=== PATIENT | male | born 1965 | race Caucasian/White ===

== ENCOUNTER 2024-01-23 16:14 | Emergency (ER) | payer OTHER, SELFPAY ==
[2024-01-23 16:26] VITALS: BP 120/92; PULSE 92; TEMP 38.1; O2SAT 93; BMI 32.7
--- NOTE | 2024-01-23 16:33 | ECG_ITS ---
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
--- NOTE | 2024-01-23 16:39 | ED.GENADUL1 ---
HPI HPI - General Adult General Chief complaint: Fall Stated complaint: FALL Time Seen by Provider: 01/23/24 16:27 Source: patient Mode of arrival: walk-in Limitations: no limitations History of Present Illness HPI narrative: Patient presents to ED from [facility] for medical evaluation. He arrived there from [place] today and had a fall yesterday. He is currently intoxicated. He has an abrasion on his forehead and his lip and complains of left collarbone pain and shoulder pain due to a fall. He said he does not remember falling or how he fell. He admits to drinking for the past few months and is going to the [facility] for further care. He has a low-grade fever on arrival Related Data Allergies Allergy/AdvReac Type Severity Reaction Status Date / Time No Known Drug Allergies Allergy Verified 01/23/24 16:26 Opioid HPI Opioid Management Most Recent Opioid Data: No Data to Display Review of Systems ROS Status of ROS 10 or more systems reviewed and unremarkable except as noted in history and below Exam Narrative Exam Narrative: Time Seen: [] Vital Signs: [Per nurse's notes.] General: [Alert]Intoxicated Skin: [Warm, dry, no rash.] Head: [Normocephalic, Abrasion of the forehead and abrasion to the lip Neck: [Supple, trachea midline.] Eye: [Pupils are equal, round and reactive to light, extraocular movements are intact, normal conjunctiva.] Ears, nose, mouth and throat: oral mucosa moist. Cardiovascular: [Regular rate and rhythm, no murmur.] Respiratory: [Lungs are clear to auscultation, respirations are non-labored, breath sounds are equal.] Chest wall: [No tenderness, no deformity.] Gastrointestinal: [Soft, nontender, non distended, normal bowel sounds.] MSK: 5 out of 5 muscle strength x 4 extremities no calf pain or edema, Tenderness to palpation over the left clavicle. Pain with any range of motion of the left upper extremity. No elbow pain no wrist pain. Lymphatics: [No lymphadenopathy.] Psychiatric: [Cooperative, appropriate mood & affect.] Neurological: [Alert and oriented to person, place, time, and situation, no focal neurological deficit observed.] Constitutional Vital Signs, click to edit/add: Last Vital Signs Temp 100.6 F H 01/23/24 16:26 Pulse 87 05/08/24 17:41 Resp 14 01/23/24 17:41 BP 124/87 01/23/24 17:41 Pulse Ox 95 01/23/24 17:41 O2 Del Method Room Air 01/23/24 16:26 Course Vital Signs Vital signs: Vital Signs Temperature 100.6 F H 01/23/24 16:26 Pulse Rate 92 H 01/23/24 16:26 Respiratory Rate 20 01/23/24 16:26 Blood Pressure 120/92 H 01/23/24 16:26 Pulse Oximetry 93 L 01/23/24 16:26 Oxygen Delivery Method Room Air 01/23/24 16:26 Temperature 100.6 F H 01/23/24 16:26 Pulse Rate 87 01/23/24 17:41 Respiratory Rate 14 01/23/24 17:41 Blood Pressure 124/87 01/23/24 17:41 Pulse Oximetry 95 01/23/24 17:41 Oxygen Delivery Method Room Air 01/23/24 16:26 Medical Decision Making MDM Narrative Medical decision making narrative: Patient's x-rays show a fractured clavicle. Patient was placed in a sling. He was given pain medication here. His labs are nonacute and his COVID swab was negative. His alcohol level is elevated over 300. He is medically cleared to return to detox center. He will need follow-up with Ortho Differential Diagnosis Differential Diagnosis: Clavicle fracture, electrolyte abnormality, concussion, brain injury,Alcoho Medical Records Medical records reviewed: Yes I reviewed the patient's medical records Lab Data Lab results reviewed: Yes I reviewed the patient's lab results Labs: Lab Results 01/23/24 Range/Units 16:40 WBC 9.9 (4.0-11.0) 10^3/uL RBC 4.79 (4.70-6.10) 10^6/uL Hgb 15.1 (14.0-18.0) g/dL Hct 43.1 (42.0-54.0) % MCV 90.0 (80.0-94.0) fL MCH 31.5 (25.9-34.0) pg MCHC 35.0 (29.9-35.2) g/dL RDW 14.1 (11.0-15.0) % Plt Count 254 (150-450) 10^3/uL MPV 10.1 (9.5-13.5) fL Neut % (Auto) 61.8 (43.0-75.0) % Lymph % (Auto) 30.5 (20.5-60.0) % [place] % (Auto) 6.7 (1.7-12.0) % Eos % (Auto) 0.4 L (0.9-7.0) % Baso % (Auto) 0.2 (0.2-2.0) % Neut # (Auto) 6.1 (1.4-6.5) 10^3/uL Lymph # (Auto) 3.0 (1.2-3.8) 10^3/uL [place] # (Auto) 0.7 (0.3-0.8) 10^3/uL Eos # (Auto) 0.0 (0.0-0.7) 10^3/uL Baso # (Auto) 0.0 (0.0-0.1) 10^3/uL Abs Immat Gran (auto) 0.04 H (0.00-0.03) 10^3/uL Imm/Tot Granulo (auto) 0.4 (0.0-0.5) % Sodium 141 (136-145) mmol/L Potassium 4.0 (3.5-5.1) mmol/L Chloride 102 (98-107) mmol/L Carbon Dioxide 22.6 (21.0-32.0) mmol/L Anion Gap 20.4 BUN 9.0 (7.0-18.0) mg/dL Creatinine 0.88 (0.70-1.30) mg/dL Est GFR ( Amer) >60 (>=60) Est GFR (Non-Af Amer) >60 (>=60) BUN/Creatinine Ratio 10.2 Glucose 97 (74-106) mg/dL Calcium 8.9 (8.5-10.1) mg/dL Total Bilirubin 0.4 (0.2-1.0) mg/dL AST 29 (15-37) U/L ALT 37 (16-63) U/L Alkaline Phosphatase 99 (46-116) U/L Total Protein 8.1 (6.4-8.2) g/dL Albumin 4.2 (3.4-5.0) g/dL Globulin 3.9 g/dL Albumin/Globulin Ratio 1.1 Lipase 43.0 (16.0-77.0) U/L Ethanol Quant 312 mg/dL SARS-CoV-2 Ag (CV2AG) Negative (NEGATIVE) Imaging Data Chest x-ray: Radiologist's impression: ITS Impressions Chest X-Ray 01/23/24 17:08 IMPRESSION: Acute mild to moderately displaced minimally comminuted mid left clavicle fracture. Mild left glenohumeral and AC joint degenerative change. Remainder of the chest and left clavicle radiographs is unremarkable. EXAM: CT scan of the head without contrast. Dose reduction technique used: Automated exposure control and/or adjustment of the mA and/or kV according to patient size and/or use of iterative reconstruction technique. REASON FOR EXAM: fall COMPARISON: None FINDINGS: No intracranial hemorrhage, mass effect, midline shift, fractures or evidence of acute ischemic infarct. No hydrocephalus. Minimal generalized cerebral and cerebellar volume loss. Minimal small vessel gliosis. Paranasal sinuses and mastoid air cells are clear. Remainder unremarkable. IMPRESSION: No acute intracranial abnormalities. Electronically authenticated by: SAGE DigifyHOLA Date: 01/23/2024 17:28 Clavicle X-Ray 01/23/24 17:08 IMPRESSION: Acute mild to moderately displaced minimally comminuted mid left clavicle fracture. Mild left glenohumeral and AC joint degenerative change. Remainder of the chest and left clavicle radiographs is unremarkable. EXAM: CT scan of the head without contrast. Dose reduction technique used: Automated exposure control and/or adjustment of the mA and/or kV according to patient size and/or use of iterative reconstruction technique. REASON FOR EXAM: fall COMPARISON: None FINDINGS: No intracranial hemorrhage, mass effect, midline shift, fractures or evidence of acute ischemic infarct. No hydrocephalus. Minimal generalized cerebral and cerebellar volume loss. Minimal small vessel gliosis. Paranasal sinuses and mastoid air cells are clear. Remainder unremarkable. IMPRESSION: No acute intracranial abnormalities. Electronically authenticated by: [employer] Date: 01/23/2024 17:[address] 01/23/24 17:08 IMPRESSION: Acute mild to moderately displaced minimally comminuted mid left clavicle fracture. Mild left glenohumeral and AC joint degenerative change. Remainder of the chest and left clavicle radiographs is unremarkable. EXAM: CT scan of the head without contrast. Dose reduction technique used: Automated exposure control and/or adjustment of the mA and/or kV according to patient size and/or use of iterative reconstruction technique. REASON FOR EXAM: fall COMPARISON: None FINDINGS: No intracranial hemorrhage, mass effect, midline shift, fractures or evidence of acute ischemic infarct. No hydrocephalus. Minimal generalized cerebral and cerebellar volume loss. Minimal small vessel gliosis. Paranasal sinuses and mastoid air cells are clear. Remainder unremarkable. IMPRESSION: No acute intracranial abnormalities. Electronically authenticated by: SAGE INFANTE Date: 01/23/2024 17:28 ECG Data Attestation: I personally reviewed and interpreted this ECG as follows: Interpretation: EKG INTERPRETATION Time: []1643 Rate: []100 Rhythm: _ []Sinus tachycardia ST segments: _ [] T waves: _ [] Ectopy: _ [] P wave/DE interval: _ [] QRS interval: _ [] QT interval: _ [] Comparison: _ [] Comparison EKG date: [] Performed by: [self]No acute ST elevation or depression Discharge Plan Discharge Stand Alone Forms: Portal Instructions Chief Complaint: Fall Clinical Impression: Alcohol abuse, Fall, Clavicle fracture Patient Disposition: Home, Self-Care Time of Disposition Decision: 17:54 Mode of Transportation: Private Vehicle Print Language: Urdu Instructions: Clavicle Fracture (ED), Alcohol Use Disorder (ED) Referrals: Physician,Non-Staff, [Primary Care Provider] - 1 week Jesus Briseno MD [Physician] - 1 week
[2024-01-23 16:58] LABS: Basophils Percent Auto 0.2 % (0.2-2.0); Eosinophils Percent Auto 0.4 % (0.9-7.0); Hematocrit 43.1 % (42.0-54.0); Hemoglobin 15.1 g/dL (14.0-18.0); Immature Granulocytes Abs Auto 0.04 10^3/uL (0.00-0.03); Immature Granulocytes Pct Auto 0.4 % (0.0-0.5); Lymphocytes Percent Auto 30.5 % (20.5-60.0); Mean Corpuscular Hemoglobin 31.5 pg (25.9-34.0); Mean Platelet Volume 10.1 fL (9.5-13.5); Monocytes Absolute Auto 0.7 10^3/uL (0.3-0.8); Monocytes Percent Auto 6.7 % (1.7-12.0); Neutrophils Absolute Auto 6.1 10^3/uL (1.4-6.5); Neutrophils Percent Auto 61.8 % (43.0-75.0); Platelet Count 254 10^3/uL (150-450); Red Blood Count 4.79 10^6/uL (4.70-6.10); Red Cell Distribution Width 14.1 % (11.0-15.0); White Blood Count 9.9 10^3/uL (4.0-11.0)
--- NOTE | 2024-01-23 17:00 | PC.NURSE ---
pt to imaging via stretcher at this time.
--- NOTE | 2024-01-23 17:08 | CT_ITS ---
[address] [address] Patient Name: MARILIA LEE MRN: [id number] date: 1965 Sex: M Assigned Patient Location: ER Current Patient Location: ER Accession/Order Number: [id number] Exam Date: 01/23/2024 17:00 Report Date: 01/23/2024 17:28 At the request of: LOLITA SANCHES Procedure: CT head/brain wo con Exam: Radiographs: XR chest 1V, XR clavicle LT Reason for exam: fall Comparison: None CT/CT head/brain wo con IMPRESSION: Acute mild to moderately displaced minimally comminuted mid left clavicle fracture. Mild left glenohumeral and AC joint degenerative change. Remainder of the chest and left clavicle radiographs is unremarkable. EXAM: CT scan of the head without contrast. Dose reduction technique used: Automated exposure control and/or adjustment of the mA and/or kV according to patient size and/or use of iterative reconstruction technique. REASON FOR EXAM: fall COMPARISON: None FINDINGS: No intracranial hemorrhage, mass effect, midline shift, fractures or evidence of acute ischemic infarct. No hydrocephalus. Minimal generalized cerebral and cerebellar volume loss. Minimal small vessel gliosis. Paranasal sinuses and mastoid air cells are clear. Remainder unremarkable. IMPRESSION: No acute intracranial abnormalities. Electronically authenticated by: SAGE INFANTE Date: 01/23/2024 17:28
[2024-01-23 17:09] LABS: SARS-CoV-2 Ag NEGATIVE (NEGATIVE)
[2024-01-23] MEDS: 0.9 % SODIUM CHLORIDE 1,000 ML 999 ML IV (17:11)
[2024-01-23 17:15] LABS: Alanine Aminotransferase 37 U/L (16-63); Albumin Globulin Ratio 1.1; Albumin Level 4.2 g/dL (3.4-5.0); Alkaline Phosphatase 99 U/L (46-116); Anion Gap 20.4; Aspartate Amino Transferase 29 U/L (15-37); BUN Creatinine Ratio 10.2; Bilirubin Total 0.4 mg/dL (0.2-1.0); Calcium 8.9 mg/dL (8.5-10.1); Carbon Dioxide 22.6 mmol/L (21.0-32.0); Chloride 102 mmol/L (98-107); Estimated GFR (African America >60 (>=60); Estimated GFR (Non-African Ame >60 (>=60); Globulin 3.9 g/dL; Glucose 97 mg/dL (74-106); Sodium 141 mmol/L (136-145); Total Protein 8.1 g/dL (6.4-8.2)
[2024-01-23 17:17] LABS: Ethanol 312 mg/dL
[2024-01-23 17:41] VITALS: BP 124/87; PULSE 87; O2SAT 95
--- NOTE | 2024-01-23 17:49 | PC.NURSE ---
sling applied to L shoulder. pt verbalizes understanding of how to use/apply sling. pt demonstrates understanding.
[2024-01-23] MEDS: MORPHINE SULFATE 4 MG/ML VIAL IV (17:53)
[2024-01-23 18:15] VITALS: BP 130/77; PULSE 70; O2SAT 96
== END 2024-01-23 19:14 | disposition home or self-care (01) ==
PROVIDERS: Emergency Provider Emergency Medicine
DX: S42.002A Fracture of unspecified part of left clavicle, initial encounter for closed fracture (principal); F10.10 Alcohol abuse, uncomplicated; W19.XXXA Unspecified fall, initial encounter; Z20.822 Contact with and (suspected) exposure to COVID-19
CPT/HCPCS: 36415; 70450; 71045; 73000; 80053; 80307; 80320; 83690; 85025; 87811; 93005; 96374; 99285